=== PATIENT | male | born 1985 | race Caucasian/White ===

== ENCOUNTER 2019-11-23 10:14 | Emergency (ER) | payer BC, SELFPAY ==
[2019-11-23 10:25] VITALS: BP 122/75; PULSE 69; RESP 20; TEMP 36.9; O2SAT 99
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
[2019-11-23] MEDS: IBUPROFEN 400 MG TABLET 800 MG PO (10:35)
[2019-11-23] MEDS: TETANUS,DIPHTHERIA,AC PERTUSSIS ADULT (0.5 ML) BOOSTRIX IM (10:36)
== END 2019-11-23 11:43 | disposition home or self-care (01) ==
PROVIDERS: Emergency Provider Nurse Practitioner
DX: S51.811A Laceration without foreign body of right forearm, initial encounter (principal); W54.0XXA Bitten by dog, initial encounter; Z23 Encounter for immunization
CPT/HCPCS: 12004; 90471; 90715; 99213; A9270; G0463